=== PATIENT | female | born 1935 | race Caucasian/White ===

== ENCOUNTER 2018-03-30 19:12 | Inpatient (IN) ==
[2018-03-30] MEDS ORDERED: IPRATROPIUM/ALBUTEROL 3 ML AMPUL.NEB NEB ONE (20:01)
[2018-03-30 21:54] LABS: Basophils # (Auto) 0 K/mcL (0.0-0.3); Basophils % (Auto) 0.2 % (0.0-2.0); Eosinophils # (Auto) 0 K/mcL (0.0-0.7); Eosinophils % (Auto) 0.3 % (0.0-7.0); Granulocytes % (Auto) 74.9 % (38.0-78.0); Lymphocytes % (Auto) 11.9 % (15.5-49.0); Mean Cell Volume 89.7 fL (80.0-100.0); Mean Corpuscular HGB Conc 33.8 g/dL (31.0-36.0); Mean Corpuscular Hemoglobin 30.3 pg (26.0-34.0); Monocytes # (Auto) 1.1 K/mcL (0.1-0.9); Monocytes % (Auto) 12.7 % (1.0-12.0); Platelet Count 313 K/mcL (140-440); RBC 3.93 M/mcL (4.00-5.20); Red Cell Distribution Width 16.4 % (11.5-14.5)
[2018-03-30 21:58] LABS: ALT/SGPT 9 U/l (0-40); Albumin 3.1 gm/dL (3.2-5.2); Alkaline Phosphatase 76 U/L (39-117); Blood Urea Nitrogen 17 mg/dl (8-23)
[2018-03-30] MEDS ORDERED: methylPREDNISolone SOD SUCC 125 MG/2 ML VIAL IV ONE (23:04)
[2018-03-30] MEDS ORDERED: CEFEPIME 1 GM VIAL IV ONE (23:14)
[2018-03-30] MEDS ORDERED: VANCOMYCIN 1,000 MG in 0.9 % SODIUM CHLORIDE 250 ML IV ONE (23:14)
--- NOTE | 2018-03-30 23:19 | Emergency Department Note ---
SOB HPI - General Chief Complaint: Shortness of Breath/Dyspnea Stated Complaint: decreased o2 sats Time Seen by Provider: 03/30/18 20:11 Source: patient, EMS Mode of arrival: EMS Limitations: no limitations - History of Present Illness This 82-year-old female was visited at [facility], by her daughter this morning around 530 where she looked listless, flush and was not as interactive/ responsive. A number of hours later around 10 AM she is a little bit better. Around 5 PM her oxygen intake had been increased from 2 L up to 5 L in the general appearance was still listless and weak and not looking all that well. The nursing staff indicated that they had a hard time keeping her oxygen is above 84%. She also has had poor p.o. intake. She has had similar episodes before. She was admitted to [facility] in [place] in January with pneumonia and was there for a significant period of time and then rehab. Patient also has had some vomiting with a couple of episodes 2 days ago yesterday and today. She did not get nebulized inhalers or treatments apparently at [facility]. She does get a hand-held inhaler and Spiriva. Yesterday her oxygen was at 1-1/2 L. She had a low-grade fever today of 100 reported. She also has been on an antibiotic, it appears to be metronidazole, for C. difficile which had a recurrence. She was on it for 2 weeks and then repeated in these last 2 weeks. REVIEW OF SYSTEMS: No reported fevers or chills except the recent today of 100. No chest pains or palpitations. Sometimes heart monitor demonstrates down to 40s. Has some chronic cough. History of some mucus plugging. She has done some wheezing today. Not much phlegm. No hemoptysis. No back pain. - Related Data Home Medications Medication Instructions Recorded Confirmed Acetaminophen [Pain Reliever] 500 mg PO TID 03/30/18 03/30/18 Aspirin [Lo-Dose Aspirin EC] 81 mg PO DAILY 03/30/18 03/30/18 Beclomethasone 1 gm TOPICAL BID 03/30/18 03/30/18 Bisacodyl [Dulcolax] 10 mg [place] DAILYP PRN 03/30/18 03/30/18 Latanoprost Ophth Drops [Xalatan 1 gtt OU HS 03/30/18 03/30/18 Ophth Drops] Lisinopril [Zestril] 40 mg PO DAILY 03/30/18 03/30/18 Lutein/Zeaxanthin [Ocuvite Lutein 2 each PO DAILY 03/30/18 03/30/18 25-5 mg Softgel] Magnesium Hydroxide [Milk of 30 ml PO Q72HP PRN 03/30/18 03/30/18 Magnesia] Na Phos,M-B/Na Phos,Di-Ba [Fleets 1 dose [place] DAILYP PRN 03/30/18 03/30/18 Adult] amLODIPine BESYLATE [Amlodipine 10 mg PO DAILY 03/30/18 03/30/18 Besylate] guaiFENesin [Guaifenesin] 400 mg PO TID PRN 03/30/18 03/30/18 Previous Rx's Medication Instructions Recorded nebulizer #1 each 07/22/15 albuterol sulfate HFA 90 180 mcg INHALATION Q4H PRN #18 g 06/18/16 mcg/actuation aerosol inhaler albuterol sulfate 2.5 mg/3 mL 2.5 mg INHALATION .Q4-6H #180 ml 08/09/16 (0.083 %) solution for nebulization paroxetine 10 mg tablet 10 mg PO QAM #90 tab 08/12/17 montelukast 10 mg tablet 10 mg PO DAILY #30 tab 12/16/17 tiotropium bromide 18 mcg capsule 1 puff INHALATION DAILY #30 puff 12/16/17 with inhalation device budesonide-formoterol HFA 160 2 inh INHALATION BID #10.2 g 12/19/17 mcg-4.5 mcg/actuation aerosol inhaler Allergies Allergy/AdvReac Type Severity Reaction Status Date / Time Sulfa (Sulfonamide Allergy Intermediate Diarrhea Verified 01/20/18 06:55 Antibiotics) hydrocodone Allergy Unknown Hives Verified 01/20/18 06:55 ciprofloxacin [From Cipro] AdvReac Intermediate Back Pain Verified 01/20/18 06: 55 control pills Allergy Unknown Dizziness Uncoded 01/10/18 17:56 Past Medical History - Past Medical History Medical history: Reports: asthma, COPD, other (hypoxia (chronic). Aortic Stenosis. Osteoporosis. Peripheral vascular disease. Allergic rhinitis.) Psychiatric history: Denies: anxiety, depression Surgical history ED: Reports: hip replacement, hysterectomy - Social History smoking status: Current every day smoker Physical Exam Limitations: no limitations General appearance: alert, other (initially in rapid respirations with effort; with oxygen at 7-9 L/min. breathing comfortably.) Head: atraumatic, normocephalic Eye: Present: EOMI ENT: mucous membranes dry Neck: Present: trachea midline. Absent: lymphadenopathy, thyromegaly Respiratory: Present: wheezes (mild to moderate left side with crackles mild; mostly crackles trace right sided.), accessory muscle use (initally), prolonged expiratory phase (initially). Absent: stridor Cardiovascular: Present: regular rate, normal rhythm. Absent: systolic murmur, diastolic murmur Abdominal: Present: soft. Absent: distention, tenderness, guarding, rebound, rigidity, organomegaly, mass Extremities: Absent: pedal edema, pretibial edema, calf tenderness Neurological: Present: alert, oriented X3 Psychiatric: Present: flat affect Skin: Present: warm, dry Course Vital Signs Temperature 98.4 F 03/30/18 19:12 Pulse Rate 84 03/30/18 19:12 Respiratory Rate 36 H 03/30/18 19:12 Blood Pressure 118/55 03/30/18 19:12 Pulse Oximetry (%) 78 L 03/30/18 19:12 Temperature 98.4 F 03/30/18 19:12 Pulse Rate 99 H 03/30/18 22:31 Respiratory Rate 33 H 03/30/18 22:16 Blood Pressure 126/63 03/30/18 22:31 Pulse Oximetry (%) 93 03/30/18 22:31 Shortness of Breath/Dyspnea - [facility] Narrative Medical decision making narrative: This patient appeared to be in some respiratory distress with hypoxia and some general sense of not looking well or acting well with low oxygen saturations. She was placed on some oxygen and an ABG demonstrated that she was not a CO2 retainer so her oxygen was increased to as high as 9 L and sometimes at 7 L with her oxygen is barely maintaining at 88-90% even over a prolonged period of time. Her chest x-ray demonstrated possible CHF versus diffuse pneumonia or bronchial plugging and cardiomegaly. Her labs included a pro-calcitonin of 1.33. Because of all of these pictures and findings she is being admitted. Dr. Carver kindly accepted care of this patient will be taken to telemetry. Blood cultures were ordered as well as vancomycin 1000 mg in cefepime 1000 mg. He is giving consideration for CT scanning of her chest, etc. - Lab Data Lab results reviewed: Yes I reviewed the patient's lab results. Result diagrams: 03/30/18 20:45 03/30/18 20:45 Lab Results 03/30/18 03/30/18 03/30/18 Range/Units 20:45 20:45 20:45 WBC (4.5-11.0) K/mcL RBC (4.00-5.20) M/mcL Hgb (12.0-15.0) g/dL Hct (36.0-48.0) % MCV (80.0-100.0) fL MCH (26.0-34.0) pg MCHC (31.0-36.0) g/dL RDW (11.5-14.5) % Plt Count (140-440) K/mcL MPV (7.4-10.4) fL Gran % (38.0-78.0) % Lymph % (Auto) (15.5-49.0) % [place] % (Auto) (1.0-12.0) % Eos % (Auto) (0.0-7.0) % Baso % (Auto) (0.0-2.0) % Gran # (1.8-8.0) K/mcL Lymph # (Auto) (1.5-4.8) K/mcL [place] # (Auto) (0.1-0.9) K/mcL Eos # (Auto) (0.0-0.7) K/mcL Baso # (Auto) (0.0-0.3) K/mcL VBG Lactic Acid 1.5 (0.5-2.2) mmol/L Sodium 136 (133-145) mmol/L Potassium 3.7 (3.3-5.1) mmol/L Chloride 98 (96-108) mmol/L Carbon Dioxide 24 (22-30) mmol/L Anion Gap 14.0 (8-16) BUN 17 (8-23) mg/dl Creatinine 0.7 (0.6-1.1) mg/dl GFR Calculation 80 Glucose 169 H (70-105) mg/dL Calcium 8.6 (8.6-10.4) mg/dl Total Bilirubin 0.3 (0.0-1.0) mg/dL AST 11 (0-37) U/l ALT 9 (0-40) U/l Alkaline Phosphatase 76 (39-117) U/L Total Protein 6.3 (5.9-8.4) gm/dL Albumin 3.1 L (3.2-5.2) gm/dL Globulin 3.2 (2.2-3.7) gm/dL Albumin/Globulin Ratio 1.0 (1.0-2.3) Procalcitonin 1.33 (<0.10) ng/mL 03/30/18 Range/Units 20:45 WBC 8.4 (4.5-11.0) K/mcL RBC 3.93 L (4.00-5.20) M/mcL Hgb 11.9 L (12.0-15.0) g/dL Hct 35.2 L (36.0-48.0) % MCV 89.7 (80.0-100.0) fL MCH 30.3 (26.0-34.0) pg MCHC 33.8 (31.0-36.0) g/dL RDW 16.4 H (11.5-14.5) % Plt Count 313 (140-440) K/mcL MPV 6.8 L (7.4-10.4) fL Gran % 74.9 (38.0-78.0) % Lymph % (Auto) 11.9 L (15.5-49.0) % [place] % (Auto) 12.7 H (1.0-12.0) % Eos % (Auto) 0.3 (0.0-7.0) % Baso % (Auto) 0.2 (0.0-2.0) % Gran # 6.3 (1.8-8.0) K/mcL Lymph # (Auto) 1.0 L (1.5-4.8) K/mcL [place] # (Auto) 1.1 H (0.1-0.9) K/mcL Eos # (Auto) 0 (0.0-0.7) K/mcL Baso # (Auto) 0 (0.0-0.3) K/mcL VBG Lactic Acid (0.5-2.2) mmol/L Sodium (133-145) mmol/L Potassium (3.3-5.1) mmol/L Chloride (96-108) mmol/L Carbon Dioxide (22-30) mmol/L Anion Gap (8-16) BUN (8-23) mg/dl Creatinine (0.6-1.1) mg/dl GFR Calculation Glucose (70-105) mg/dL Calcium (8.6-10.4) mg/dl Total Bilirubin (0.0-1.0) mg/dL AST (0-37) U/l ALT (0-40) U/l Alkaline Phosphatase (39-117) U/L Total Protein (5.9-8.4) gm/dL Albumin (3.2-5.2) gm/dL Globulin (2.2-3.7) gm/dL Albumin/Globulin Ratio (1.0-2.3) Procalcitonin (<0.10) ng/mL - Radiology Data Radiology results reviewed: Yes I reviewed the patient's radiology results. - EKG Data EKG results narrative: No acute ACS findings. FLattening of T-waves. WIll be read by a muffler hand. Disposition Pt seen by MEDICAL INSTRUMENT CABLE FABRICATOR/PA only: No Clinical Impression: COPD with exacerbation, Hypoxia, Abnormal chest xray Disposition: Xfer As Inpt ([facility]) Condition: Fair Referrals: Reji Serrato MD [Primary Care Provider] -
--- NOTE | 2018-03-31 00:37 | Internal Med History&Physical ---
Medical - H&P: HPI Patient information: Note initiated : 03/31/18 at 12:37 am Service Date, if different from initiated Date: [] Patient: Kenia Mcgregor a 82 y/o F admitted on for decreased o2 sats. Chief Complaint: [] History of present illness: Ms. Mcgregor is a 82 year old F with h/o copd, recent hospitalization for pna and respiratory failure at [facility], recent cdiff infection, presents to the ER accompained by her daugther for evaluation of shortness of breath x 1 day The patient's daugther noted that the patient has not been feeling well since this morning, they have been having a hard time to maintain the patient's oxygen saturation. At baseline she requires 2 L of oxygen, however the patient was getting up to 5 L and still was unable to maintain the oxygen saturation more than 90%. The patient had significant weakness fatigue, was not able to eat much during the day and was therefore brought to the hospital. The patient denies any other acute complaints. She notes that she had a history of diarrhea which is now resolved. The patient has shortness of breath , admits to be having chills, no documented fever, notes may have some cough no significant sputum production. Decreased appetite. The patient denies any headache changes in vision changes in hearing, no difficulty in swallowing, no chest pain, no nausea or belly pain no diarrhea or constipation. She denies any joint pain skin rashes. She denies any psychiatric problems. In the emergency room the patient was noted to be afebrile temperature 98.4, blood pressure was stable at 116/57, tachycardic with a heart rate of 101. She was tachypneic with a respiratory rate between 35-40. Blood work showed hemoglobin of 11.9, WBC count 8.4, platelets 313. Lactic acid 1.5, sodium 136, potassium 3.7 creatinine 0.7 glucose 169. She had elevated pro-calcitonin at 1.33. ABG showed pH of 7.45 PCO2 36 PO2 58 Chest x-ray showed diffuse interstitial infiltrate, she also had a possible pneumonia on the right lower lobe. Given that the patient was significantly tachypneic, was on 7 L of oxygen, she was admitted to telemetry and placed on BiPAP. Patient daughters will by the bedside, plan of care reviewed with them. Patient wishes to be DO NOT INTUBATE DO NOT RESUSCITATE. This morining the patient was doing well, oxygen levels maintained on 3L at 90% , CT chest done this AM showing IMPRESSION: Peripheral infiltrates in both lower lobes. This does not appear to be due to congestive heart failure. Pneumonia is the most likely consideration. Other considerations would include bronchiolitis obliterans organizing pneumonia (BOOP), aspiration, allergic hypersensitivity pneumonia, eosinophilic pneumonia and less likely sarcoidosis. Soft tissue material obstructing the right middle lobe bronchus with postobstructive atelectasis. This could be tumor, mucous or inflammatory material. Consultation with pulmonology is recommended. Bronchoscopy is a consideration. 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 All systems: reviewed and no additional remarkable complaints except as stated ( as per HPI,) Medical - H&P: PMH Medical history: Medical History (Last Reviewed 08/12/17 @ 10:29 by Reji Serrato MD) Orthostatic hypotension (Resolved) Coccyx contusion (Resolved) Aortic stenosis (Chronic) Osteoporosis (Chronic) Tinnitus (Chronic) Peripheral vascular disease (Chronic 08/14/13) Chronic obstructive pulmonary disease (Chronic) Vulvovaginal candidiasis (Resolved) Asthma (Chronic) Aortic aneurysm (Chronic 08/14/13) Allergic rhinitis (Chronic) Weakness generalized (Resolved) UTI (urinary tract infection) (Resolved) Visual disturbance of one eye (Chronic) Surgical history: Past Surgical History (Last Reviewed 08/12/17 @ 10:29 by Reji Serrato MD) History of bladder surgery (Resolved) Pertinent family history: Family History (Last Reviewed 08/12/17 @ 10:29 by Reji Serrato MD) Father Family history of cerebrovascular accident Mother Family history of diabetes mellitus Pancreatic cancer Sister Family history of diabetes mellitus Breast cancer Unknown Osteoarthritis Daughter Barretts esophagus Medical - H&P: Meds Home Medications Medication Instructions Recorded Confirmed Type nebulizer #1 each 07/22/15 01/10/18 Rx albuterol sulfate HFA 90 180 mcg INHALATION Q4H PRN #18 g 06/18/16 03/30/18 Rx mcg/actuation aerosol inhaler albuterol sulfate 2.5 mg/3 mL 2.5 mg INHALATION .Q4-6H #180 ml 08/09/16 Rx (0.083 %) solution for nebulization paroxetine 10 mg tablet 10 mg PO QAM #90 tab 08/12/17 03/30/18 Rx montelukast 10 mg tablet 10 mg PO DAILY #30 tab 12/16/17 03/30/18 Rx tiotropium bromide 18 mcg capsule 1 puff INHALATION DAILY #30 puff 12/16/17 Rx with inhalation device budesonide-formoterol HFA 160 2 inh INHALATION BID #10.2 g 12/19/17 03/30/18 Rx mcg-4.5 mcg/actuation aerosol inhaler Acetaminophen [Pain Reliever] 500 mg PO TID 03/30/18 03/30/18 History Aspirin [Lo-Dose Aspirin EC] 81 mg PO DAILY 03/30/18 03/30/18 History Beclomethasone 1 gm TOPICAL BID 03/30/18 03/30/18 History Bisacodyl [Dulcolax] 10 mg [place] DAILYP PRN 03/30/18 03/30/18 History Latanoprost Ophth Drops [Xalatan 1 gtt OU HS 03/30/18 03/30/18 History Ophth Drops] Lisinopril [Zestril] 40 mg PO DAILY 03/30/18 03/30/18 History Lutein/Zeaxanthin [Ocuvite Lutein 2 each PO DAILY 03/30/18 03/30/18 History 25-5 mg Softgel] Magnesium Hydroxide [Milk of 30 ml PO Q72HP PRN 03/30/18 03/30/18 History Magnesia] Na Phos,M-B/Na Phos,Di-Ba [Fleets 1 dose [place] DAILYP PRN 03/30/18 03/30/18 History Adult] amLODIPine BESYLATE [Amlodipine 10 mg PO DAILY 03/30/18 03/30/18 History Besylate] guaiFENesin [Guaifenesin] 400 mg PO TID PRN 03/30/18 03/30/18 History Allergies Allergy/AdvReac Type Severity Reaction Status Date / Time hydrocodone Allergy Mild Hives Verified 03/31/18 06:37 Sulfa (Sulfonamide Allergy Mild Diarrhea Verified 03/31/18 06:37 Antibiotics) ciprofloxacin [From Cipro] AdvReac Intermediate Back Pain Verified 01/20/18 06: 55 control pills AdvReac Mild Dizziness Uncoded 03/31/18 06:37 Medical - H&P: Exam - Constitutional Vitals: Temp Pulse Resp BP Pulse Ox 98.4 F 103 H 29 H 152/74 88 L 03/31/18 00:32 03/31/18 00:32 03/31/18 00:32 03/31/18 00:32 03/31/18 00:32 Exam: GENERAL: The patient is a well-developed, well-nourished, in mild respiratory distress. Is alert and oriented x2. VITAL SIGNS: Reviewed and as noted elsewhere. HEENT: Head is normocephalic and atraumatic. Extraocular muscles are intact. Pupils are equal, round, and reactive to light. Nares appeared normal. Mouth appears any without lesions. Mucous membranes are dry NECK: Normal to inspection, Supple, No lymphadenopathy or thyromegaly. LUNGS: Air entry equal on both sides, prolonged exp phase, vivien exp wheezing mild , no crackles. pt was tachypenic, had accessory mucle use. HEART: Regular rate and rhythm normal, S1 and S2 heard, no Gallop, S3 or Rub Noted, systolic murmur aortic region. ABDOMEN: Soft, nontender, and nondistended. Positive bowel sounds. No hepatosplenomegaly was noted. EXTREMITIES: No cyanosis, clubbing, rash, lesions or edema. NEUROLOGIC: Cranial nerves II through XII are grossly intact. Motor and Sensory System Grossly Intact PSYCHIATRIC: Normal affect, Normal Mood. Appropriate Behavior. SKIN: No ulceration or wounds noted, No jaundice, No rash noted. Medical - H&P: Reslt - Labs CBC & Chem 7: 03/31/18 03:30 03/31/18 03:30 Labs: Short CBC 03/30/18 Range/Units 20:45 WBC 8.4 (4.5-11.0) K/mcL Hgb 11.9 L (12.0-15.0) g/dL Hct 35.2 L (36.0-48.0) % Plt Count 313 (140-440) K/mcL BMP 03/30/18 20:45 Sodium 136 Potassium 3.7 Chloride 98 Carbon Dioxide 24 BUN 17 Creatinine 0.7 Glucose 169 H Calcium 8.6 Liver Function 03/30/18 Range/Units 20:45 Total Bilirubin 0.3 (0.0-1.0) mg/dL AST 11 (0-37) U/l ALT 9 (0-40) U/l Alkaline Phosphatase 76 (39-117) U/L Albumin 3.1 L (3.2-5.2) gm/dL Medical - H&P: A/P - Narrative A/P Narrative: A/P Acute on chronic Respiratory Failure/ Health care associated Pneumonia- Treat with vanco, cefepime and zithromax, for the pna, BIPAP support for respiratory failure. Wean off when stable COPD exacerbation: IV steroids and duonebs, on antibiotics, monitor for response HTN- BP stable resume home meds. H/o Dementia- Stable, high risk of delirium Cdffi diarrhea- Formed stools at present, start on banatrok and probiotics. consider vancomycin if patient has diarrhea Bronchial mucous plugging- Seems to be peristent since january 2018, I have asked radiology to see if this is unchanged since then, They do not have access to their images?, I have consulted pulmonary to see if a bronchoscopy is warranted given consideration for a malignancy. DVT hep sq DNR/DNI Regular Diet. Social History - Tobacco smoking status: Current every day smoker - Tobacco Type tobacco type: cigarettes
[2018-03-31] MEDS ORDERED: AZITHROMYCIN 500 MG in DEXTROSE 5% IN WATER 250 ML IV ONE (01:03)
[2018-03-31] MEDS: CEFEPIME 1 GM VIAL IV SCH ×3 (01:03→20:47)
[2018-03-31] MEDS ORDERED: VANCOMYCIN PER PHARMACY IV ONE (01:03)
[2018-03-31] MEDS ORDERED: ONDANSETRON 4 MG/2 ML VIAL IV PRN (01:03)
[2018-03-31] MEDS ORDERED: ACETAMINOPHEN 325 MG TABLET PO PRN (01:03)
[2018-03-31] MEDS: LACTATED RINGERS 1,000 ML IV SCH ×2 (01:35→10:42)
[2018-03-31] MEDS: IPRATROPIUM/ALBUTEROL 3 ML AMPUL.NEB NEB SCH ×6 (03:08→23:28)
[2018-03-31 05:26] LABS: Basophils # (Auto) 0 K/mcL (0.0-0.3); Basophils % (Auto) 0.1 % (0.0-2.0); Eosinophils # (Auto) 0 K/mcL (0.0-0.7); Eosinophils % (Auto) 0 % (0.0-7.0); Granulocytes % (Auto) 92.4 % (38.0-78.0); Lymphocytes # (Auto) 0.3 K/mcL (1.5-4.8); Lymphocytes % (Auto) 2.9 % (15.5-49.0); Mean Cell Volume 91.2 fL (80.0-100.0); Mean Corpuscular HGB Conc 33.8 g/dL (31.0-36.0); Mean Corpuscular Hemoglobin 30.8 pg (26.0-34.0); Monocytes # (Auto) 0.4 K/mcL (0.1-0.9); Monocytes % (Auto) 4.6 % (1.0-12.0); Platelet Count 323 K/mcL (140-440); RBC 3.91 M/mcL (4.00-5.20); Red Cell Distribution Width 16.3 % (11.5-14.5)
[2018-03-31 05:56] LABS: ALT/SGPT 9 U/l (0-40); Albumin/Globulin Ratio 0.8 (1.0-2.3); Alkaline Phosphatase 81 U/L (39-117); Bilirubin,Direct < 0.2 mg/dL (0.0-0.3); Blood Urea Nitrogen 16 mg/dl (8-23); Gamma Glutamyl Transpeptidase 20 U/L (5-36); Uric Acid 5.4 mg/dL (2.5-8.0)
[2018-03-31] MEDS: 0.9 % SODIUM CHLORIDE 10 ML SYRINGE IV SCH ×3 (06:30→22:18)
[2018-03-31] MEDS ORDERED: VANCOMYCIN PER PHARMACY IV SCH (06:45)
--- NOTE | 2018-03-31 07:46 | XRay Report ---
HISTORY: Reason for Exam:sob hypoxia FINDINGS: Moderately severe generalized increased interstitial lung markings are present bilaterally with the greatest involvement in the right lower lobe. There may be a small subpulmonic pleural effusion the right side. The heart size is within normal limits. Lung volumes are normal and there is no lobar consolidation. No adenopathy is detected. Comparison with the prior exam from 01/20/18 shows the interstitial infiltrates are new. IMPRESSION: Widespread interstitial opacities bilaterally. This could be due to congestive heart failure with pulmonary edema, pneumonia or noninfectious inflammatory process such as inhalation exposure. Interpreted and Authenticated by: Randall Dumont 03/31/18
[2018-03-31] MEDS: methylPREDNISolone SOD SUCC 125 MG/2 ML VIAL IV SCH ×3 (08:42→22:18)
--- NOTE | 2018-03-31 09:12 | Cat Scan Report ---
ORIGINAL REPORT CLINICAL INFORMATION: Hypoxia and pneumonia COMPARISON: Chest x-ray on 03/30/18 TECHNIQUE: 2.5 mm axial slices were obtained from the lung apices through the bases without intravenous contrast. Sagittal, coronal and axial reformatted images were processed and reviewed at bone, lung and soft tissue windows. 7 mm axial MIP images were also reconstructed. Radiation exposure was limited using dose reduction technology. FINDINGS: There are patchy areas of consolidated lung parenchyma in both lower lobes. This predominantly involves the periphery of the posterior basilar segments and posteriorly in the superior segments of the lower lobes. There is near complete atelectasis of the right middle lobe. There is an intraluminal filling defect in the right middle lobe bronchus. This could be mucus, tumor or inflammatory tissue. Minor atelectasis is seen adjacent to the major fissure and inferior segment of lingula. There is relative sparing of the upper lobes. Minor centrilobular emphysema is present in both lung apices. Tiny bilateral layering pleural effusions are present. There are a few nonspecific lymph nodes in the mediastinum. The largest is is subcarinal space and measures 1.6 x 1.7 cm. Hilar adenopathy is not apparent on this nonenhanced study. There is a small calcified granuloma posteriorly medially in the right upper lobe. The heart is borderline enlarged. There are few calcified plaques in the coronary arteries. Also calcifications in the mitral annulus. Patient has a moderate size fusiform aneurysm in the upper abdominal aorta. The aneurysm extends far beyond the level of the study. Measures 4.3 x 5.1 cm. This has enlarged since the time of the prior abdominal ultrasound done on 07/31/14. IMPRESSION: Peripheral infiltrates in both lower lobes. This does not appear to be due to congestive heart failure. Pneumonia is the most likely consideration. Other considerations would include bronchiolitis obliterans organizing pneumonia (BOOP), aspiration, allergic hypersensitivity pneumonia, eosinophilic pneumonia and less likely sarcoidosis. Soft tissue material obstructing the right middle lobe bronchus with postobstructive atelectasis. This could be tumor, mucous or inflammatory material. Consultation with pulmonology is recommended. Bronchoscopy is a consideration. 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 The right middle lobe atelectasis is a chronic stable finding. The lumen of the bronchus to the right middle lobe was narrowed on the prior study but the narrowing has progressed. The patchy areas of consolidated lung parenchyma in the lower lobes have enlarged significantly. Bronchial wall thickening is present in both lower lobes. Interpreted and Authenticated by: Randall Dumont 03/31/18
[2018-03-31] MEDS: PARoxetine 20 MG TABLET PO SCH (09:27)
[2018-03-31] MEDS: MONTELUKAST 10 MG TABLET PO SCH (09:27)
[2018-03-31] MEDS: ASPIRIN 81 MG TAB.CHEW PO SCH (09:28)
[2018-03-31] MEDS ORDERED: guaiFENesin 600 MG TAB.SR.12H PO PRN (13:09)
[2018-03-31] MEDS: VANCOMYCIN 1,000 MG in 0.9 % SODIUM CHLORIDE 250 ML IV SCH (14:23)
[2018-03-31] MEDS: AZITHROMYCIN 250 MG in DEXTROSE 5% IN WATER 250 ML IV SCH (17:21)
[2018-03-31] MEDS: LACTOBACILLUS 1 CAPSULE PO SCH (20:47)
[2018-03-31] MEDS: LATANOPROST OPHTH DROPS 2.5ML BOTTLE OU SCH (20:47)
[2018-03-31] MEDS: Budesonide/Formoterol Fumarate [Symbicort] 160-4.5 mcg Inhaler INH SCH (20:48)
[2018-03-31] MEDS ORDERED: LATANOPROST OPHTH DROPS 2.5ML BOTTLE OU SCH (21:00)
[2018-04-01] MEDS: IPRATROPIUM/ALBUTEROL 3 ML AMPUL.NEB NEB SCH ×6 (03:01→23:01)
[2018-04-01 05:13] LABS: Basophils # (Auto) 0 K/mcL (0.0-0.3); Basophils % (Auto) 0.1 % (0.0-2.0); Eosinophils # (Auto) 0 K/mcL (0.0-0.7); Eosinophils % (Auto) 0 % (0.0-7.0); Granulocytes % (Auto) 88.9 % (38.0-78.0); Lymphocytes # (Auto) 0.5 K/mcL (1.5-4.8); Lymphocytes % (Auto) 5.5 % (15.5-49.0); Mean Cell Volume 90.5 fL (80.0-100.0); Mean Corpuscular HGB Conc 33.9 g/dL (31.0-36.0); Mean Corpuscular Hemoglobin 30.7 pg (26.0-34.0); Monocytes # (Auto) 0.5 K/mcL (0.1-0.9); Monocytes % (Auto) 5.5 % (1.0-12.0); Platelet Count 333 K/mcL (140-440); RBC 3.67 M/mcL (4.00-5.20); Red Cell Distribution Width 16.5 % (11.5-14.5)
[2018-04-01 05:29] LABS: ALT/SGPT 8 U/l (0-40); Albumin 2.9 gm/dL (3.2-5.2); Albumin/Globulin Ratio 0.9 (1.0-2.3); Alkaline Phosphatase 81 U/L (39-117); Bilirubin,Direct < 0.2 mg/dL (0.0-0.3); Blood Urea Nitrogen 17 mg/dl (8-23); Gamma Glutamyl Transpeptidase 18 U/L (5-36); Uric Acid 4.5 mg/dL (2.5-8.0)
[2018-04-01] MEDS: 0.9 % SODIUM CHLORIDE 10 ML SYRINGE IV SCH ×5 (05:47→22:06)
[2018-04-01] MEDS: methylPREDNISolone SOD SUCC 125 MG/2 ML VIAL IV SCH ×2 (05:47→22:04)
[2018-04-01] MEDS: LISINOPRIL 20 MG TABLET PO SCH (09:20)
[2018-04-01] MEDS: MONTELUKAST 10 MG TABLET PO SCH (09:20)
[2018-04-01] MEDS: amLODIPine 10 MG TABLET PO SCH (09:20)
[2018-04-01] MEDS: Budesonide/Formoterol Fumarate [Symbicort] 160-4.5 mcg Inhaler INH SCH ×2 (09:21→22:04)
[2018-04-01] MEDS: ASPIRIN 81 MG TAB.CHEW PO SCH (09:21)
[2018-04-01] MEDS: LACTOBACILLUS 1 CAPSULE PO SCH ×2 (09:24→22:04)
[2018-04-01] MEDS: PARoxetine 20 MG TABLET PO SCH (09:24)
--- NOTE | 2018-04-01 09:24 | Internal Med Progress Note ---
Medical - PN: Subj Patient information: Note initiated : 04/01/18 at 9:20 am Service Date, if different from initiated Date: [] Patient: Kenia Mcgregor 82 y/o F admitted on 03/31/18 for decreased o2 sats. Chief Complaint: [] Interval history: Ms. Mcgregor is a 82 year old F with h/o copd, recent hospitalization for pna and respiratory failure at [facility], recent cdiff infection, presents to the ER accompained by her daugther for evaluation of shortness of breath x 1 day The patient's daugther noted that the patient has not been feeling well since this morning, they have been having a hard time to maintain the patient's oxygen saturation. At baseline she requires 2 L of oxygen, however the patient was getting up to 5 L and still was unable to maintain the oxygen saturation more than 90%. The patient had significant weakness fatigue, was not able to eat much during the day and was therefore brought to the hospital. The patient denies any other acute complaints. She notes that she had a history of diarrhea which is now resolved. The patient has shortness of breath , admits to be having chills, no documented fever, notes may have some cough no significant sputum production. Decreased appetite. The patient denies any headache changes in vision changes in hearing, no difficulty in swallowing, no chest pain, no nausea or belly pain no diarrhea or constipation. She denies any joint pain skin rashes. She denies any psychiatric problems. In the emergency room the patient was noted to be afebrile temperature 98.4, blood pressure was stable at 116/57, tachycardic with a heart rate of 101. She was tachypneic with a respiratory rate between 35-40. Blood work showed hemoglobin of 11.9, WBC count 8.4, platelets 313. Lactic acid 1.5, sodium 136, potassium 3.7 creatinine 0.7 glucose 169. She had elevated pro-calcitonin at 1.33. ABG showed pH of 7.45 PCO2 36 PO2 58 Chest x-ray showed diffuse interstitial infiltrate, she also had a possible pneumonia on the right lower lobe. Given that the patient was significantly tachypneic, was on 7 L of oxygen, she was admitted to telemetry and placed on BiPAP. Patient daughters will by the bedside, plan of care reviewed with them. Patient wishes to be DO NOT INTUBATE DO NOT RESUSCITATE. 04/01 Pt seen examined, no acute overnight issues, pt tolerating po well, her sob is better, but she still requires 6-7L oxygen to keep her osat < [address] Diaz, consideration for aspiration, get barium swallow elena continue antibiotics for now, continue steroids bipap on stand by try to ambulate with therapy. labs stable Pertinent ROS: Denies headache, dizziness Denies chest pain, palpitations Denies cough or shortness of breath Denies abdominal pain, nausea or vomiting. - Constitutional Vitals: Vital Signs Temp Pulse Resp BP Pulse Ox 97.2 F 74 24 H 148/66 92 04/01/18 06:45 04/01/18 07:45 04/01/18 07:45 04/01/18 06:45 04/01/18 06:45 Period Temp Pulse Resp BP Sys/Cisse Pulse Ox Last 24 Hr 97.2 F-98.4 F 74-88 20-31 140-165/66-76 91-96 Intake and Output 03/31/18 04/01/18 04/01/18 21:59 05:59 13:59 Intake Total 1140 / 1140 540 / 540 Output Total 225 / 225 Balance 915 / 915 539 / 539 -1 / -1 Weight 120 lb 8 oz Intake & Output: Intake & Output 03/31/18 04/01/18 04/01/18 21:59 05:59 13:59 Intake Total 1140 / 1140 540 / 540 Output Total 225 / 225 Balance 915 / 915 539 / 539 -1 / -1 Weight 120 lb 8 oz Intake: IV 960 / 960 540 / 540 Zithromax 250 mg In Dextrose 5% 250 / 250 in Water 250 ml @ 250 mls/hr IV Q24H [facility] Rx#:[id number] Lactated Ringers 1,000 ml @ 125 460 / 460 mls/hr IV .Q8H [facility] Rx#: [id number] Vancomycin 1,000 mg In Sodium 250 / 250 Chloride 0.9% 250 ml @ 250 mls/ hr IV Q24H [facility] Rx#:[id number] Oral 180 / 180 Output: Void Amount 225 / 225 # of times incontinent of urine Other: Meal Dinner Percent of Meal Consumed 25% Exam: Constitutional; Afebrile, cooperative, alert, not in distress. Eyes- No icterus, , No periorbital swelling Ears- Ext ear normal, hearing normal to conversation. Neck- Midline trachea, supple Respiratory system: Air Entry equal on both sides, wheezing resolved, air entry much better , vivien basilar crackles present. CVS- Rate rhythm regular, S1,S2 heard, no gallop, no rub. Abdomen- Soft nontender abdomen, no organomegaly, no tenderness, no guarding or rigidity, TOOLING MANAGER- AOOx2, moving all extremities, no gross focal deficit noted. Medical - PN: Obj Da - Labs CBC & Chem 7: 04/01/18 03:48 04/01/18 03:45 Labs: Abnormal Lab Results 04/01/18 04/01/18 03/31/18 03:48 03:45 03:30 RBC 3.67 L Hgb 11.3 L Hct 33.2 L RDW 16.5 H MPV 7.1 L Gran % 88.9 H Lymph % (Auto) 5.5 L [place] % (Auto) Gran # Lymph # (Auto) 0.5 L [place] # (Auto) Carbon Dioxide 21 L Creatinine 0.5 L Glucose 172 H 175 H Albumin 2.9 L 3.0 L Albumin/Globulin Ratio 0.9 L 0.8 L Triglycerides 165 H 166 H 03/31/18 03/30/18 03/30/18 03:30 20:45 20:45 RBC 3.91 L 3.93 L Hgb 11.9 L Hct 35.7 L 35.2 L RDW 16.3 H 16.4 H MPV 7.1 L 6.8 L Gran % 92.4 H Lymph % (Auto) 2.9 L 11.9 L [place] % (Auto) 12.7 H Gran # 8.8 H Lymph # (Auto) 0.3 L 1.0 L [place] # (Auto) 1.1 H Carbon Dioxide Creatinine Glucose 169 H Albumin 3.1 L Albumin/Globulin Ratio Triglycerides Meds: Medications Acetaminophen (Tylenol) 650 mg PO Q6HP PRN PRN Reason: PAIN/FEVER > 101 Albuterol/Ipratropium (Duoneb) 3 ml NEB Q4HRT [facility] Last Admin: 04/01/18 07:45 Dose: 3 ml Amlodipine Besylate (Norvasc) 10 mg PO DAILY [facility] Aspirin (Aspirin) 81 mg PO DAILY [facility] Last Admin: 03/31/18 09:28 Dose: 81 mg Cefepime HCl (Maxipime) 1 gm IV Q12H [facility] Last Admin: 03/31/18 20:47 Dose: 1 gm Guaifenesin (Mucinex) 600 mg PO BIDP PRN PRN Reason: Secretions Azithromycin 250 mg/ Dextrose 250 mls @ 250 mls/hr IV Q24H [facility] Stop: 04/03/18 18:59 Last Infusion: 03/31/18 19:21 Dose: Infused Vancomycin HCl 1,000 mg/ (Sodium Chloride) 250 mls @ 250 mls/hr IV Q24H [facility] Last Infusion: 03/31/18 17:20 Dose: Infused Lactobacillus Rhamnosus (Culturelle) 1 cap PO BID [facility] Last Admin: 03/31/18 20:47 Dose: 1 cap Latanoprost (Xalatan Ophth Drops) 1 gtt OU HS [facility] Last Admin: 03/31/18 20:47 Dose: 1 gtt Lisinopril (Zestril) 40 mg PO DAILY [facility] Methylprednisolone Sodium Succinate (Solu-Medrol) 62.5 mg IV Q8 [facility] Last Admin: 04/01/18 05:47 Dose: 62.5 mg Montelukast Sodium (Singular) 10 mg PO DAILY [facility] Last Admin: 03/31/18 09:27 Dose: 10 mg Ondansetron HCl (Zofran) 4 mg IV Q4HP PRN PRN Reason: Nausea And Vomiting Paroxetine HCl (Paxil) 10 mg PO DAILY [facility] Last Admin: 03/31/18 09:27 Dose: 10 mg Budesonide/Formoterol Fumarate [Symbicort] 160-4.5 Mcg Inhaler 2 dose INH BID [facility] Last Admin: 03/31/18 20:48 Dose: Not Given Sodium Chloride (Saline Flush) 10 ml IV Q8 [facility] Last Admin: 04/01/18 05:47 Dose: 10 ml Vancomycin HCl (Vancomycin Per Pharmacy) 1 order IV UD [facility] Medical - PN: A/P - Time Spent With Patient Total time spent is greater than 50% in coordination of care (as documented) at patient's floor/unit and/or counseling patient: - Narrative A/P Narrative: A/P Acute on chronic Respiratory Failure/ Health care associated Pneumonia- Treat with vanco, cefepime and zithromax, for the pna, Pt clinically improving, still needs oxygen to maintain oxygen level > 90, COPD exacerbation: IV steroids and duonebs, on antibiotics, clinically improving , descalate steroid dosing. HTN- BP stable resume home meds. H/o Dementia- Stable, high risk of delirium Cdffi diarrhea- Formed stools at present, start on banatrok and probiotics. consider vancomycin if patient has diarrhea Bronchial mucous plugging- likely aspiration related, appreciate pulmonary input , get swallow eval/ barium swallow. DVT hep sq DNR/DNI- Regular Diet. Medical - PN: Qual - VTE Deep Vein Thrombosis/Pulmonary Embolism Present on Admission: No
[2018-04-01] MEDS: CEFEPIME 1 GM VIAL IV SCH ×2 (09:28→22:03)
[2018-04-01] MEDS: VANCOMYCIN 1,000 MG in 0.9 % SODIUM CHLORIDE 250 ML IV SCH (10:09)
[2018-04-01] MEDS: AZITHROMYCIN 250 MG in DEXTROSE 5% IN WATER 250 ML IV SCH (12:35)
[2018-04-01] MEDS: LATANOPROST OPHTH DROPS 2.5ML BOTTLE OU SCH (22:03)
[2018-04-02] MEDS: IPRATROPIUM/ALBUTEROL 3 ML AMPUL.NEB NEB SCH ×7 (04:10→23:17)
[2018-04-02 05:18] LABS: Basophils # (Auto) 0 K/mcL (0.0-0.3); Basophils % (Auto) 0.2 % (0.0-2.0); Eosinophils # (Auto) 0 K/mcL (0.0-0.7); Eosinophils % (Auto) 0 % (0.0-7.0); Granulocytes % (Auto) 92.5 % (38.0-78.0); Lymphocytes # (Auto) 0.5 K/mcL (1.5-4.8); Lymphocytes % (Auto) 3.5 % (15.5-49.0); Mean Cell Volume 90.6 fL (80.0-100.0); Mean Corpuscular HGB Conc 33.4 g/dL (31.0-36.0); Mean Corpuscular Hemoglobin 30.3 pg (26.0-34.0); Monocytes # (Auto) 0.5 K/mcL (0.1-0.9); Monocytes % (Auto) 3.8 % (1.0-12.0); Platelet Count 376 K/mcL (140-440); RBC 3.82 M/mcL (4.00-5.20); Red Cell Distribution Width 16.6 % (11.5-14.5)
[2018-04-02 05:34] LABS: ALT/SGPT 15 U/l (0-40); Albumin 2.8 gm/dL (3.2-5.2); Albumin/Globulin Ratio 0.8 (1.0-2.3); Alkaline Phosphatase 88 U/L (39-117); Bilirubin,Direct < 0.2 mg/dL (0.0-0.3); Blood Urea Nitrogen 18 mg/dl (8-23); Gamma Glutamyl Transpeptidase 23 U/L (5-36); Uric Acid 4.5 mg/dL (2.5-8.0)
[2018-04-02] MEDS: 0.9 % SODIUM CHLORIDE 10 ML SYRINGE IV SCH (06:01)
[2018-04-02] MEDS ORDERED: VANCOMYCIN 1,000 MG in 0.9 % SODIUM CHLORIDE 250 ML IV SCH (09:00)
[2018-04-02] MEDS: LISINOPRIL 20 MG TABLET PO SCH (09:27)
[2018-04-02] MEDS: amLODIPine 10 MG TABLET PO SCH (09:28)
[2018-04-02] MEDS: ASPIRIN 81 MG TAB.CHEW PO SCH (09:28)
[2018-04-02] MEDS: LACTOBACILLUS 1 CAPSULE PO SCH ×2 (09:28→20:24)
[2018-04-02] MEDS: PARoxetine 20 MG TABLET PO SCH (09:28)
[2018-04-02] MEDS: MONTELUKAST 10 MG TABLET PO SCH (09:29)
[2018-04-02] MEDS: Budesonide/Formoterol Fumarate [Symbicort] 160-4.5 mcg Inhaler INH SCH ×2 (09:29→20:26)
[2018-04-02] MEDS ORDERED: ONDANSETRON ODT 4 MG TABLET SL PRN ×2 (10:25→14:51)
[2018-04-02] MEDS ORDERED: AMOXICILLIN/POTASSIUM CLAV 500 MG TABLET PO SCH (10:30)
[2018-04-02] MEDS ORDERED: AZITHROMYCIN 250 MG TABLET PO SCH (10:30)
[2018-04-02] MEDS ORDERED: BUDESONIDE 0.5 MG/2 ML AMPUL.NEB NEB SCH (10:30)
[2018-04-02] MEDS: methylPREDNISolone SOD SUCC 125 MG/2 ML VIAL IV SCH (10:36)
[2018-04-02] MEDS: CEFEPIME 1 GM VIAL IV SCH (10:36)
[2018-04-02] MEDS: VANCOMYCIN 1,000 MG in 0.9 % SODIUM CHLORIDE 250 ML IV SCH (10:36)
[2018-04-02] MEDS: AZITHROMYCIN 250 MG in DEXTROSE 5% IN WATER 250 ML IV SCH (10:37)
[2018-04-02] MEDS ORDERED: predniSONE 20 MG TABLET PO SCH (10:45)
[2018-04-02] MEDS ORDERED: BUDESONIDE 0.5 MG/2 ML AMPUL.NEB NEB ONE (11:38)
--- NOTE | 2018-04-02 12:53 | Internal Med Progress Note ---
Medical - PN: Subj Patient information: Note initiated : 04/02/18 at 12:46 pm Service Date, if different from initiated Date: [] Patient: Kenia Mcgregor 82 y/o F admitted on 03/31/18 for decreased o2 sats. Chief Complaint: [] Interval history: Ms. Mcgregor is a 82 year old F with h/o copd, recent hospitalization for pna and respiratory failure at [facility], recent cdiff infection, presents to the ER accompained by her daugther for evaluation of shortness of breath x 1 day The patient's daugther noted that the patient has not been feeling well since this morning, they have been having a hard time to maintain the patient's oxygen saturation. At baseline she requires 2 L of oxygen, however the patient was getting up to 5 L and still was unable to maintain the oxygen saturation more than 90%. The patient had significant weakness fatigue, was not able to eat much during the day and was therefore brought to the hospital. The patient denies any other acute complaints. She notes that she had a history of diarrhea which is now resolved. The patient has shortness of breath , admits to be having chills, no documented fever, notes may have some cough no significant sputum production. Decreased appetite. The patient denies any headache changes in vision changes in hearing, no difficulty in swallowing, no chest pain, no nausea or belly pain no diarrhea or constipation. She denies any joint pain skin rashes. She denies any psychiatric problems. In the emergency room the patient was noted to be afebrile temperature 98.4, blood pressure was stable at 116/57, tachycardic with a heart rate of 101. She was tachypneic with a respiratory rate between 35-40. Blood work showed hemoglobin of 11.9, WBC count 8.4, platelets 313. Lactic acid 1.5, sodium 136, potassium 3.7 creatinine 0.7 glucose 169. She had elevated pro-calcitonin at 1.33. ABG showed pH of 7.45 PCO2 36 PO2 58 Chest x-ray showed diffuse interstitial infiltrate, she also had a possible pneumonia on the right lower lobe. Given that the patient was significantly tachypneic, was on 7 L of oxygen, she was admitted to telemetry and placed on BiPAP. Patient daughters will by the bedside, plan of care reviewed with them. Patient wishes to be DO NOT INTUBATE DO NOT RESUSCITATE. 04/01 Pt seen examined, no acute overnight issues, pt tolerating po well, her sob is better, but she still requires 6-7L oxygen to keep her osat < [address] Diaz, consideration for aspiration, get barium swallow elena continue antibiotics for now, continue steroids bipap on stand by try to ambulate with therapy. labs stable 04/02 Patient seen and examined, no acute overnight events, still requiring 4 L oxygen , saturating well, there is error in documentation of 78 % osat Pt lost IV accesss we tried but were not able to get an access, pt not wanting an IV anymore, pt daugther does not want us to try any more, will swich to oral meds family ok with idea that we do not have access in case of emergency, no plans for aggresive interventions anyways. xfer to med surg status. Pertinent ROS: Denies headache, dizziness Denies chest pain, palpitations cough present, sob better. Denies abdominal pain, nausea or vomiting. - Constitutional Vitals: Vital Signs Temp Pulse Resp BP Pulse Ox 98.9 F 82 28 H 163/73 78 L 04/02/18 11:45 04/02/18 11:45 04/02/18 11:45 04/02/18 11:45 04/02/18 11:45 Period Temp Pulse Resp BP Sys/Cisse Pulse Ox Last 24 Hr 97.6 F-98.9 F 72-82 16-32 120-170/56-73 78-91 Intake and Output 04/01/18 04/02/18 04/02/18 21:59 05:59 13:59 Intake Total 470 / 470 0 / 0 240 / 240 Output Total 2 / 2 Balance 469 / 469 - / -1 238 / 238 Weight 121 lb 8 oz Intake & Output: Intake & Output 04/01/18 04/02/18 04/02/18 21:59 05:59 13:59 Intake Total 470 / 470 0 / 0 240 / 240 Output Total 2 / 2 Balance 469 / 469 - / -1 238 / 238 Weight 121 lb 8 oz Intake: IV 250 / 250 Zithromax 250 mg In Dextrose 5% 250 / 250 in Water 250 ml @ 250 mls/hr IV Q24H [facility] Rx#:[id number] Oral 220 / 220 0 / 0 240 / 240 Output: Void Amount 0 / 0 # of times incontinent of urine 2 Other: Meal Dinner Breakfast Percent of Meal Consumed 75% 75% Feeding Ability Independent Independent Exam: Constitutional; Afebrile, cooperative, alert, not in distress. Eyes- No icterus, , No periorbital swelling Ears- Ext ear normal, Neck- Midline trachea, supple Respiratory system: Air Entry equal on both sides, improved air entry from before, CVS- Rate rhythm regular, S1,S2 heard, no gallop, no rub. 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 Medical - PN: Obj Da - Labs CBC & Chem 7: 04/02/18 03:35 04/02/18 03:35 Labs: Abnormal Lab Results 04/02/18 04/02/18 04/01/18 03:35 03:35 03:48 WBC 14.0 H RBC 3.82 L 3.67 L Hgb 11.6 L 11.3 L Hct 34.6 L 33.2 L RDW 16.6 H 16.5 H MPV 6.8 L 7.1 L Gran % 92.5 H 88.9 H Lymph % (Auto) 3.5 L 5.5 L [place] % (Auto) Gran # 12.9 H Lymph # (Auto) 0.5 L 0.5 L [place] # (Auto) Carbon Dioxide Creatinine 0.5 L Glucose 159 H Albumin 2.8 L Albumin/Globulin Ratio 0.8 L Triglycerides 153 H 04/01/18 03/31/18 03/31/18 03:45 03:30 03:30 WBC RBC 3.91 L Hgb Hct 35.7 L RDW 16.3 H MPV 7.1 L Gran % 92.4 H Lymph % (Auto) 2.9 L [place] % (Auto) Gran # 8.8 H Lymph # (Auto) 0.3 L [place] # (Auto) Carbon Dioxide 21 L Creatinine 0.5 L Glucose 172 H 175 H Albumin 2.9 L 3.0 L Albumin/Globulin Ratio 0.9 L 0.8 L Triglycerides 165 H 166 H 03/30/18 03/30/18 20:45 20:45 WBC RBC 3.93 L Hgb 11.9 L Hct 35.2 L RDW 16.4 H MPV 6.8 L Gran % Lymph % (Auto) 11.9 L [place] % (Auto) 12.7 H Gran # Lymph # (Auto) 1.0 L [place] # (Auto) 1.1 H Carbon Dioxide Creatinine Glucose 169 H Albumin 3.1 L Albumin/Globulin Ratio Triglycerides Meds: Medications Acetaminophen (Tylenol) 650 mg PO Q6HP PRN PRN Reason: PAIN/FEVER > 101 Albuterol/Ipratropium (Duoneb) 3 ml NEB Q4HRT [facility] Last Admin: 04/02/18 11:39 Dose: 3 ml Amlodipine Besylate (Norvasc) 10 mg PO DAILY [facility] Last Admin: 04/02/18 09:28 Dose: 10 mg Amoxicillin/Clavulanate Potassium (Augmentin) 500 mg PO BIDCC [facility] Last Admin: 04/02/18 10:51 Dose: 500 mg Aspirin (Aspirin) 81 mg PO DAILY [facility] Last Admin: 04/02/18 09:28 Dose: 81 mg Azithromycin (Zithromax) 250 mg PO DAILY [facility] Stop: 04/03/18 09:01 Last Admin: 04/02/18 10:50 Dose: 250 mg Budesonide (Pulmicort) 0.5 mg NEB Q12 [facility] Last Admin: 04/02/18 11:30 Dose: Not Given Guaifenesin (Mucinex) 600 mg PO BIDP PRN PRN Reason: Secretions Lactobacillus Rhamnosus (Culturelle) 1 cap PO BID [facility] Last Admin: 04/02/18 09:28 Dose: 1 cap Latanoprost (Xalatan Ophth Drops) 1 gtt OU HS [facility] Last Admin: 04/01/18 22:03 Dose: 1 gtt Lisinopril (Zestril) 40 mg PO DAILY [facility] Last Admin: 04/02/18 09:27 Dose: 40 mg Montelukast Sodium (Singular) 10 mg PO DAILY [facility] Last Admin: 04/02/18 09:29 Dose: 10 mg Ondansetron HCl (Zofran Odt) 4 mg SL Q4HP PRN PRN Reason: Nausea And Vomiting Paroxetine HCl (Paxil) 10 mg PO DAILY [facility] Last Admin: 04/02/18 09:28 Dose: 10 mg Budesonide/Formoterol Fumarate [Symbicort] 160-4.5 Mcg Inhaler 2 dose INH BID [facility] Last Admin: 04/02/18 09:29 Dose: 2 dose Prednisone (Prednisone) 40 mg PO [facility] Last Admin: 04/02/18 10:51 Dose: 40 mg Medical - PN: A/P - Time Spent With Patient Total time spent is greater than 50% in coordination of care (as documented) at patient's floor/unit and/or counseling patient: - Narrative A/P Narrative: A/P Acute on chronic Respiratory Failure/ Health care associated Pneumonia- Pt unable to get IV access, family does not want us to try anymore, wants pt to be comfortable, switch to augmentin ,cotinue zithromax, COPD exacerbation: IV steroids and duonebs, on antibiotics, clinically improving , switch to oral steroids. HTN- BP stable resume home meds. H/o Dementia- Stable, high risk of delirium Cdffi diarrhea- Formed stools at present, started on banatrol and probiotics. will consider vancomycin if patient has diarrhea Bronchial mucous plugging- likely aspiration related, appreciate pulmonary input , get swallow eval/ barium swallow. DVT hep sq DNR/DNI- Regular Diet. anticipate d/c to SNF in AM. Pt family to talk with Dr Serrato regarding comfort care/ palliative care. Medical - PN: Qual - VTE Deep Vein Thrombosis/Pulmonary Embolism Present on Admission: No
[2018-04-02] MEDS ORDERED: guaiFENesin 600 MG TAB.SR.12H PO PRN (14:51)
[2018-04-02] MEDS ORDERED: ACETAMINOPHEN 325 MG TABLET PO PRN (14:51)
[2018-04-02] MEDS: AMOXICILLIN/POTASSIUM CLAV 500 MG TABLET PO SCH (17:11)
[2018-04-02] MEDS: BUDESONIDE 0.5 MG/2 ML AMPUL.NEB NEB SCH ×2 (18:53→22:07)
[2018-04-02] MEDS: morphine 20 MG/ML ORAL.CONC SL PRN ×2 (20:26→22:14)
[2018-04-02] MEDS ORDERED: LATANOPROST OPHTH DROPS 2.5ML BOTTLE OU SCH (21:00)
[2018-04-03] MEDS: IPRATROPIUM/ALBUTEROL 3 ML AMPUL.NEB NEB SCH ×2 (03:11→07:32)
[2018-04-03] MEDS: BUDESONIDE 0.5 MG/2 ML AMPUL.NEB NEB SCH (07:32)
[2018-04-03] MEDS ORDERED: predniSONE 20 MG TABLET PO SCH (08:00)
[2018-04-03] MEDS: AMOXICILLIN/POTASSIUM CLAV 500 MG TABLET PO SCH (08:02)
--- NOTE | 2018-04-03 08:10 | Discharge Summary ---
Medical - DS: Prov Patient information: Note initiated : 04/03/18 at 8:00 am Service Date, if different from initiated Date: [] Patient: Kenia Mcgregor 82 y/o F admitted on 03/31/18 for decreased o2 sats. Chief Complaint: [] Date of admission: 03/31/18 00:48 Discharge date: 04/03/18 Primary care physician: Reji Serarto Admitting clinician: Onelia Carver Consults: 03/30/18 23:16 Consult to Physician [CONS] Stat Comment: Consulting Provider: Onelia Carver Reason For Exam: Physician to Consult Discharging clinician: Onelia Carver Medical - DS: Meds - Discharge Medications Prescriptions: Amoxicillin/Potassium Clav [Augmentin] 500 mg PO BIDCC #10 tab Azithromycin [Zithromax] 250 mg PO DAILY #1 tab Budesonide [Pulmicort] 0.5 mg NEB Q12 #60 ampul.neb diphenhydrAMINE [Benadryl] 25 mg PO Q4-6HP PRN #90 cap PRN Reason: Itching Ipratropium/Albuterol [Duoneb] 3 ml NEB Q6H #120 ampul.neb LORazepam [Lorazepam Intensol] 1 mg PO Q2HP PRN #60 ml PRN Reason: Anxiety morphine 2 - 4 mg SL Q2HP PRN #30 ml PRN Reason: Pain predniSONE [Prednisone] 40 mg PO QAMCC #6 tab Active and Home Medications: Home Medications albuterol sulfate HFA 90 mcg/actuation aerosol inhaler 180 mcg INHALATION Q4H PRN #18 g 06/18/16 [Rx Confirmed 03/30/18 Last Taken 03/30/18 16:19] albuterol sulfate 2.5 mg/3 mL (0.083 %) solution for nebulization 2.5 mg INHALATION .Q4-6H #180 ml 08/09/16 [Rx Confirmed 04/02/18 Last Taken Unknown] paroxetine 10 mg tablet 10 mg PO QAM #90 tab 08/12/17 [Rx Confirmed 03/30/18 Last Taken 03/30/18 09:04] montelukast 10 mg tablet 10 mg PO DAILY #30 tab 12/16/17 [Rx Confirmed 03/30/18 Last Taken 03/30/18 09:04] tiotropium bromide 18 mcg capsule with inhalation device 1 puff INHALATION DAILY #30 puff 12/16/17 [Rx Confirmed 03/30/18 Last Taken 03/30/18 09:04] budesonide-formoterol HFA 160 mcg-4.5 mcg/actuation aerosol inhaler 2 inh INHALATION BID #10.2 g 12/19/17 [Rx Confirmed 03/30/18 Last Taken 03/30/18 16:18 ] Acetaminophen [Pain Reliever] 500 mg PO TID 03/30/18 [History Confirmed Last Taken 03/30/18 16:18] Aspirin [Lo-Dose Aspirin EC] 81 mg PO DAILY 03/30/18 [History Confirmed Last Taken 03/30/18 09:04] Beclomethasone 1 gm TOPICAL BID 03/30/18 [History Confirmed 03/30/18 Last Taken 03/30/18 10:37] Bisacodyl [Dulcolax] 10 mg HI DAILYP PRN 03/30/18 [History Confirmed 03/30/18 Last Taken Unknown] Latanoprost Ophth Drops [Xalatan Ophth Drops] 1 gtt OU HS 03/30/18 [History Confirmed 03/30/18 Last Taken 03/29/18 19:13] Lisinopril [Zestril] 40 mg PO DAILY 03/30/18 [History Confirmed 03/30/18 Last Taken 03/30/18 09:04] Lutein/Zeaxanthin [Ocuvite Lutein 25-5 mg Softgel] 2 each PO DAILY 03/30/18 [ History Confirmed 03/30/18 Last Taken 03/30/18 09:04] Magnesium Hydroxide [Milk of Magnesia] 30 ml PO Q72HP PRN 03/30/18 [History Confirmed 03/30/18 Last Taken Unknown] Na Phos,M-B/Na Phos,Di-Ba [Fleets Adult] 1 dose HI DAILYP PRN 03/30/18 [History Confirmed 03/30/18 Last Taken Unknown] amLODIPine BESYLATE [Amlodipine Besylate] 10 mg PO DAILY 03/30/18 [History Confirmed 03/30/18 Last Taken 03/30/18 09:04] guaiFENesin [Guaifenesin] 400 mg PO TID PRN 03/30/18 [History Confirmed Last Taken Unknown] Medical - DS: Hosp Hospital course: Ms. Mcgregor is a 82 year old F with h/o copd, recent hospitalization for pna and respiratory failure at [facility], recent cdiff infection, presented to the ER accompanied by her daughter for evaluation of shortness of breath x 1 day, The patient's daughter noted that the patient has not been feeling well since this morning, they have been having a hard time to maintain the patient's oxygen saturation. At baseline she requires 2 L of oxygen, however the patient was getting up to 5 L and still was unable to maintain the oxygen saturation more than 90%. The patient had significant weakness fatigue, was not able to eat much during the day and was therefore brought to the hospital. In the emergency room the patient was noted to be afebrile temperature 98.4, blood pressure was stable at 116/57, tachycardic with a heart rate of 101. She was tachypneic with a respiratory rate between 35-40. Blood work showed hemoglobin of 11.9, WBC count 8.4, platelets 313. Lactic acid 1.5, sodium 136, potassium 3.7 creatinine 0.7 glucose 169. She had elevated pro-calcitonin at 1.33. ABG showed pH of 7.45 PCO2 36 PO2 58 Chest x-ray showed diffuse interstitial infiltrate, she also had a possible pneumonia on the right lower lobe. Given that the patient was significantly tachypneic, was on 7 L of oxygen, she was admitted to telemetry and placed on BiPAP. Patient daughters will by the bedside, plan of care reviewed with them. Patient wishes to be DO NOT INTUBATE DO NOT RESUSCITATE. The patient was treated with HCAP pna treatmend with vancomycin and cefepime, azithromycn added for copd exacerbation, the patient condition improved. She had CT findings suggestive of pna, ? aspiration, mucous plugging, and possible bronchial mass. Pulmonary evaluated the patient, and bronchoscopy was not considered given high risk of ending up on a vent. The patient family/ daugther/ pt sister who were at bedside, noted that this is not how the patient would like to live senior care, given her dementia, worseming resp status, and frequent admission, they wished for palliative care. The patient also lost her IV access during the hospital stay, and therefore over the last 24 hrs is on oral meds for her infection, pt family wishes to take the patient back to the rehab center with palliative care as the goal, would like to finish the present treatment, but would not like to bring the patient back to the ER. The patient is being discharged as a palliative care patient, non comfort meds are being stopped, pt being prescribed morphine and ativan to help with comfort goals Discharge diagnosis: COPD exacerbation, Pneumonia - Time Spent with Patient Total time spent providing and/or coordinating discharge services: Greater than 30 minutes Medical - DS: Exam - Constitutional Vitals: Vital Signs Temp Pulse Pulse Resp BP Pulse Ox 04/03/18 07:39 80 24 H 04/03/18 07:33 87 L 04/03/18 07:00 84 L 04/02/18 20:00 98.7 F 20 151/69 87 L 04/02/18 19:01 81 24 H 89 L 04/02/18 18:53 83 24 H 04/02/18 18:25 87 L 04/02/18 15:47 97.7 F 20 148/70 88 L 04/02/18 11:45 98.9 F 82 28 H 163/73 89 L 04/02/18 11:39 74 18 Intake and Output 04/02/18 04/03/18 04/03/18 21:59 05:59 13:59 Intake Total 360 / 360 50 / 50 Output Total 2 / 2 2 / 2 Balance 358 / 358 48 / 48 Intake: Oral 360 / 360 50 / 50 Output: # of times incontinent of urine 2 / 2 2 / 2 Other: Meal Dinner Percent of Meal Consumed 75% Feeding Ability Assist with Tray Set Up Stool Size Moderate Stool Color Brown Stool Consistency Soft # Bowel Movements 1 # of times incontinent of 0 Bowels Weight 121 lb 8 oz Additional comments: Constitutional; Afebrile, cooperative, alert, not in distress. Eyes- No icterus, , No periorbital swelling Ears- Ext ear normal, Neck- Midline trachea, supple Respiratory system: Air Entry equal on both sides, No crackles or wheezing, no rhonchi. ant exam CVS- Rate rhythm regular, S1,S2 heard, no gallop, no rub. Abdomen- Soft nontender abdomen, no organomegaly, no tenderness, no guarding or rigidity, HUC OB- AOOx1, moving all extremities, no gross focal deficit noted. Medical - DS: Data Labs on day of discharge: Labs from last 24 hours 04/02/18 08:16 Vancomycin Trough 8.4 Preliminary micro results at discharge 03/31/18 03:30 Blood Culture - Preliminary Blood 03/31/18 23:45 Blood Culture - Preliminary Blood Medical - DS: A/P - Patient/Caregiver Discharge Instructions Activity: wear oxygen at all times Diet: Regular Diet Additional Instructions: Patient being discharged as a palliative care patient Please complete the course of antibiotics, and prednisone. Patient family does not wish the patient to be sent back to the ER. She is a comfort care patient. Use morphine and ativan as instructed for comfort care. Patient to follow up with PCP in 1-2 weeks Prescriptions: Amoxicillin/Potassium Clav [Augmentin] 500 mg PO BIDCC #10 tab Azithromycin [Zithromax] 250 mg PO DAILY #1 tab Budesonide [Pulmicort] 0.5 mg NEB Q12 #60 ampul.neb diphenhydrAMINE [Benadryl] 25 mg PO Q4-6HP PRN #90 cap PRN Reason: Itching Ipratropium/Albuterol [Duoneb] 3 ml NEB Q6H #120 ampul.neb LORazepam [Lorazepam Intensol] 1 mg PO Q2HP PRN #60 ml PRN Reason: Anxiety morphine 2 - 4 mg SL Q2HP PRN #30 ml PRN Reason: Pain predniSONE [Prednisone] 40 mg PO QAMCC #6 tab - Follow up Plan Follow up with: Reji Serrato MD [Primary Care Provider] - Disposition: Xfer SNF Prognosis: Fair Rehab Potential: Fair I certify that the patient requires SNF services: Yes Overall status at discharge: patient is progressing back to baseline Medical - DS: Qual - VTE Deep Vein Thrombosis/Pulmonary Embolism Present on Admission: No
--- NOTE | 2018-04-03 08:33 | Consultation ---
DATE OF CONSULTATION: 03/31/2018 REQUESTING PHYSICIAN: Onelia Carver MD HISTORY OF PRESENT ILLNESS: The patient is an 82-year-old female admitted in the money room teller of 03/31/2018 with one to two days of progressive shortness of breath and low-grade fever. The patient was admitted to the intensive care unit and treated with BiPAP therapy as well as broad spectrum antibiotics. The patient's past history is significant for having smoked for 50 or more years, having had her last cigarette approximately two or three months ago prior to a hospitalization at and subsequent transfer to [facility] from which she came to [facility]. The patient denies krystin fevers, sweats or chills. She denies significant sputum production. Her daughter present indicates that Dr. Price who saw her at [facility] suggested that she might benefit from some mucolytics. The patient denies dysphagia or gastroesophageal reflux disease. However, on review of her CT scan of the chest dated 03/31/2018 there is marked bilateral bibasilar and posterior chronic inflammatory appearing changes with bronchiectasis and chronic right middle lobe atelectasis. Verbal report suggests that in comparison to a CT scan at and addendum to the CT report does indicate that many of these changes are chronic. The patient has not traveled outside the [place]. 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 REVIEW OF SYSTEMS: She denies chest pains, dependent edema, gastrointestinal issues or other. On questioning in a detailed fashion, negative except as recorded above. PHYSICAL EXAMINATION: GENERAL: Pleasant 78s female in no acute distress. HEENT: Head is atraumatic, normocephalic. Eyes: PERRL, EOMI. Sclerae and conjunctiva clear. NECK: Supple. Carotids without bruits. LUNGS: Finer and coarser interstitial sounds in the bases 1[address] bilaterally with occasional rhonchus. Diminished breath sounds throughout otherwise as far as normal airflow. CARDIOVASCULAR: Regular at this time. S1, S2. There is no gallop, rub, jugular venous distention and no dependent edema. ABDOMEN: Soft. Bowel sounds are present. No apparent mass or organomegaly. BONES/JOINTS/EXTREMITIES: Without acute changes. NEUROLOGIC: Grossly nonfocal. LABORATORY DATA: Laboratory data collected during the course of this hospitalization includes the following: White count at presentation of 8.4, subsequently 9.5; hemoglobin 11.9, subsequently 12.1; platelet count 313,000, subsequently 323,000. Venous lactic acid 1.5. Basic metabolic survey is with elevation of glucose, but otherwise remarkably within normal limits. Low albumin at 3.0. IMPRESSION: Pleasant 82-year-old female with chronic, probably secondary to aspiration or reflux and aspiration, bilateral basilar bronchiectatic and fibrotic changes in her lungs as well as a fibrotic right middle lobe. Although one cannot rule out the possibility of cancer in this setting, other probabilities in this setting seem more likely. At this time, I think further investigation with bronchoscopy would be more of a hazard to the patient resulting in respiratory insufficiency and need for intubation than of help. If she expectorates sputum, that should be examined. The family, daughter present, indicates that they are not interested in any endotracheal intubation. She discussed and brings up a comfort care approach that might be instituted once the patient gets through the current illness and returns to [facility]. She has already indicated that she is not interested in CPR, endotracheal intubation or cardiopulmonary resuscitation measures. At this time, I recommend continuing the current antibiotic therapy and care plan. Thank you for the opportunity to participate in the care of this pleasant patient and family. To direct questions, please call. SARAHY:yaritza Job ID: [id number] Doc ID: [id number] Brandin IRWIN
[2018-04-03] MEDS ORDERED: amLODIPine 10 MG TABLET PO SCH (09:00)
[2018-04-03] MEDS ORDERED: AZITHROMYCIN 250 MG TABLET PO SCH (09:00)
[2018-04-03] MEDS ORDERED: LISINOPRIL 20 MG TABLET PO SCH (09:00)
[2018-04-03] MEDS ORDERED: ASPIRIN 81 MG TAB.CHEW PO SCH (09:00)
[2018-04-03] MEDS ORDERED: PARoxetine 20 MG TABLET PO SCH (09:00)
[2018-04-03] MEDS ORDERED: MONTELUKAST 10 MG TABLET PO SCH (09:00)
[2018-04-03] MEDS: LACTOBACILLUS 1 CAPSULE PO SCH (09:03)
[2018-04-03] MEDS: Budesonide/Formoterol Fumarate [Symbicort] 160-4.5 mcg Inhaler INH SCH (09:03)
== END 2018-04-03 10:02 | DRG 190 ==
LOC: ED 19:12 → ICU 03-31 00:48
PROVIDERS: ADMIT Internal Medicine; ATTEND Internal Medicine